=== PATIENT | female | born 1955 ===

== ENCOUNTER 2016-12-20 12:16 | Emergency (ER) | payer SELFPAY ==
[2016-12-20 12:23] VITALS: TEMP 98.1; O2SAT 98
--- NOTE | 2016-12-20 12:52 | ED PDOC ---
HPI: General Adult Time Seen by Provider: 12/20/16 12:34 Chief Complaint (Nursing): Abnormal Labs Chief Complaint (Provider): Low blood pressure History Per: Patient History/Exam Limitations: no limitations Onset/Duration Of Symptoms: Days (today) Additional Complaint(s): Pt. went to the clinic for routine blood work and found to have low bp in the 70s systolic. Also had ekg changes. Pt. has no symptoms. No chest pain, dyspnea, weakness, headaches, neck pain, dizziness, headaches. No cough. No leg pain. Past Medical History Reviewed: Nursing Documentation, Vital Signs Vital Signs: Last Vital Signs Temp 98.1 F 12/20/16 12:19 Pulse 65 12/20/16 12:58 Resp 15 12/20/16 12:58 BP 96/59 L 12/20/16 12:58 Pulse Ox 98 12/20/16 15:21 - Medical History PMH: Diabetes, HTN, Hypothyroidism - Surgical History Surgical History: No Surg Hx - Family History Family History: States: Unknown Family Hx - Social History Current smoker - smoking cessation education provided: No Alcohol: None Drugs: Denies - Home Medications Home Medications: Ambulatory Orders Medication Instructions Recorded Acetaminophen/Oxycodone Hydr 1 tab PO Q6 PRN #18 tab 08/15/14 [Percocet 325 mg-5 mg] - Allergies Allergies/Adverse Reactions: Allergies Allergy/AdvReac Type Severity Reaction Status Date / Time No Known Allergies Allergy Verified 08/08/14 13:27 Review of Systems ROS Statement: Except As Marked, All Systems Reviewed And Found Negative Physical Exam - Reviewed Nursing Documentation Reviewed: Yes Vital Signs Reviewed: Yes - Physical Exam Appears: Positive for: Well, Non-toxic, No Acute Distress Head Exam: Positive for: ATRAUMATIC, NORMAL INSPECTION, NORMOCEPHALIC Skin: Positive for: Normal Color, Warm, DRY Eye Exam: Positive for: EOMI, Normal appearance, PERRL ENT: Positive for: Normal ENT Inspection Neck: Positive for: Normal, Painless ROM Cardiovascular/Chest: Positive for: Regular Rate, Rhythm Respiratory: Positive for: CNT, Normal Breath Sounds Gastrointestinal/Abdominal: Positive for: Normal Exam, Bowel Sounds, Soft Back: Positive for: Normal Inspection. Negative for: L CVA Tenderness, R CVA Tenderness Extremity: Positive for: Normal ROM. Negative for: Tenderness, Pedal Edema Neurologic/Psych: Positive for: Alert, Oriented - Laboratory Results Result Diagrams: 12/20/16 12:56 12/20/16 12:56 Interpretation Of Abn Labs: no acute - ECG ECG: Positive for: Interpreted By Me, Viewed By Me ECG Rhythm: Positive for: Sinus Rhythm, Nonspecific Changes O2 Sat by Pulse Oximetry: 98 Pulse Ox Interpretation: Normal - Radiology X-Ray: Interpreted by Me, Viewed By Me X-Ray Interpretation: No Acute Disease - Progress ED Course And Treament: 1435: Stable. AAOx3. Pain free. EKG changes, similar to old. Spoke with Dr. Kenneth Trevino. Will see pt. in the ED. 1518: Stable. AAOx3. Dr. Kenneth Trevino evaluated and examined pt. Pt. will be dc home. Has had no symptoms in ER. Is not dizzy. BP maintained well in ER. Pt. to fu with clinic in 2-3 days. Pain free. Ambulated with no issues. EKG same as previous. Labs wnl. Wants to go home. Disposition - Clinical Impression Clinical Impression: Hypotension - Patient ED Disposition Is Patient to be Admitted: No Counseled Patient/Family Regarding: Studies Performed, Diagnosis, Need For Followup - Disposition Referrals: [facility] [Outside] - 12/21/16 Disposition: Routine/Home Disposition Time: 15:21 Condition: STABLE Additional Instructions: Return if not better in 3 days. Instructions: Hypotension (ED)
[2016-12-20 12:59] VITALS: BP 96/59; PULSE 65; RESP 15
[2016-12-20] MEDS: Sodium Chloride 0.9% 1,000 ML IV STA (12:59)
[2016-12-20 13:14] LABS: BASO % 0.5 % (0.0-2.0); EOS # 0.1 K/uL (0.0-0.7); EOS % 1.6 % (0.0-4.0); LYMPH # 1.8 K/uL (1.0-4.3); LYMPH % 30.6 % (20.0-40.0); MEAN CORPUSCULAR HEMOGLOBIN 31.3 pg (27.0-31.0); MEAN CORPUSCULAR HGB CONC 34.4 g/dL (33.0-37.0); MEAN PLATELET VOLUME 8.4 fl (7.2-11.7); MONO # 0.6 K/uL (0.0-0.8); MONO % 9.6 % (0.0-10.0); NEUT # 3.3 K/uL (1.8-7.0); NEUT % 57.7 % (50.0-75.0); NRBC % 0.1 % (0.0-0.0); RED CELL DISTRIBUTION WIDTH 13.5 % (11.5-14.5); WHITE BLOOD COUNT 5.8 K/uL (4.8-10.8)
[2016-12-20 13:29] LABS: PARTIAL THROMBOPLASTIN TIME 28.2 SECONDS (23.3-32.5)
[2016-12-20 13:35] LABS: ALB/GLOB RATIO 1.2 (1.0-2.1); ALKALINE PHOSPHATASE 69 U/L (38-126); ALT/SGPT 30 U/L (9-52); AST/SGOT 35 U/L (14-36); BILIRUBIN,TOTAL 0.7 mg/dl (0.2-1.3); BLOOD UREA NITROGEN 17 mg/dl (7-17); CALCIUM 9.3 mg/dL (8.4-10.2); CARBON DIOXIDE 26 mmol/L (22-30); CHLORIDE 102 mmol/L (98-107); GFR AFRICAN-AMERICAN > 60; GLUCOSE,RANDOM 126 mg/dL (65-105); POTASSIUM 4.2 MMOL/L (3.6-5.0); SODIUM 142 mmol/l (132-148); TOTAL PROTEIN 7.5 G/DL (6.3-8.2)
--- NOTE | 2016-12-20 15:28 | CP.PCM.CON ---
History of Present Illness - History of Present Illness History of Present Illness: 61 year old female with PMHx of DM II, hyperlipidemia, hypothyroidism was seen at bedside with attending, Dr. Ferris, regarding hypotension. She was seen today in [facility] by Dr. Hawkins who sent her to the ED for BP in the 70's systolic. She last took her lisinopril yesterday morning, as she did not have another pill for today. She has been tolerating food PO. Denies any headaches, dizziness, chest pain, nausea, vomiting, fever, chills. Orthostatic vitals done: Supine:115/66 HR:65 Sittin/66 HR: 66 Standin/63 HR:70 PMHx:DM II, hypothyroidism, hyperlipidemia Meds:Metformin, glipizide, levothyroxine, simvastatin, aspirin All: NKDA Sugical hx: removal of urethral stones Social: Denies tobacco, drugs, social [employer] #[id number] Past Patient History - Past Social History Alcohol: None Drugs: Denies - CARDIAC Hx Hypertension: Yes - ENDOCRINE/METABOLIC Hx Hypothyroidism: Yes - PSYCHIATRIC Hx Substance Use: No - SURGICAL HISTORY Hx Hysterectomy: Yes - ANESTHESIA Hx Anesthesia: No Meds Allergies/Adverse Reactions: Allergies Allergy/AdvReac Type Severity Reaction Status Date / Time No Known Allergies Allergy Verified 08/08/14 13:27 Physical Exam - Constitutional Appears: Well, Non-toxic, No Acute Distress - Head Exam Head Exam: NORMAL INSPECTION - ENT Exam ENT Exam: Normal Exam - Neck Exam Neck exam: Positive for: Normal Inspection - Respiratory Exam Respiratory Exam: NORMAL BREATHING PATTERN. absent: Rales, Rhonchi, Wheezes - Cardiovascular Exam Cardiovascular Exam: REGULAR RHYTHM, +S1, +S2 - GI/Abdominal Exam GI & Abdominal Exam: Normal Bowel Sounds, Soft. absent: Tenderness - Extremities Exam Extremities exam: Positive for: normal inspection. Negative for: calf tenderness, pedal edema, tenderness - Back Exam Back exam: NORMAL INSPECTION - Neurological Exam Neurological exam: Alert, Oriented x3 - Psychiatric Exam Psychiatric exam: Normal Affect, Normal Mood - Skin Skin Exam: Dry, Normal Color, Warm Results - Vital Signs Recent Vital Signs: Last Vital Signs Temp 98.1 F 12/20/16 12:19 Pulse 65 12/20/16 12:58 Resp 15 12/20/16 12:58 BP 96/59 L 12/20/16 12:58 Pulse Ox 98 12/20/16 15:23 - Labs Result Diagrams: 12/20/16 12:56 12/20/16 12:56 Labs: Laboratory Results - last 24 hr 12/20/16 12:56 WBC 5.8 RBC 4.17 Hgb 13.0 Hct 38.0 MCV 91.0 MCH 31.3 H MCHC 34.4 RDW 13.5 Plt Count 247 MPV 8.4 Neut % (Auto) 57.7 Lymph % (Auto) 30.6 Tripp % (Auto) 9.6 Eos % (Auto) 1.6 Baso % (Auto) 0.5 Neut # 3.3 Lymph # 1.8 Tripp # 0.6 Eos # 0.1 Baso # 0.0 PT 10.1 INR 0.97 APTT 28.2 Sodium 142 Potassium 4.2 Chloride 102 Carbon Dioxide 26 Anion Gap 17 BUN 17 Creatinine 0.6 L Est GFR ( Amer) > 60 Est GFR (Non-Af Amer) > 60 Random Glucose 126 H Calcium 9.3 Total Bilirubin 0.7 AST 35 ALT 30 Alkaline Phosphatase 69 Troponin I < 0.0120 Total Protein 7.5 Albumin 4.0 Globulin 3.5 Albumin/Globulin Ratio 1.2 Assessment & Plan - Assessment and Plan (Free Text) Assessment: 61 year old female with PMHx of DM, HLD, hypothyroidism presented to the ED with hypotension, which has since improved Plan: -Patient examined and evaluated at bedside with attending, Dr. Ferris -Hypotension, improved -EKG- no acute changes -CBC, BPM- labs WNL -Chest xray- no acute disease -Patient to D/C lisinopril -Adherence to medication discussed, patient verbalized understanding -Patient to follow up in [facility] in 2-3 days
--- NOTE | 2016-12-20 16:03 | RAD ---
HISTORY: dyspnea COMPARISON: No prior. FINDINGS: LUNGS: No active pulmonary disease. PLEURA: No significant pleural effusion identified, no pneumothorax apparent. CARDIOVASCULAR: Normal. OSSEOUS STRUCTURES: No significant abnormalities. VISUALIZED UPPER ABDOMEN: Normal. OTHER FINDINGS: None. IMPRESSION: No active disease.
--- NOTE | 2016-12-21 07:10 | CARD ---
APPROVED REPORT EKG Measurement Heart [id number] <Conclusion> Normal sinus rhythm Nonspecific T wave abnormality Abnormal ECG
== END 2016-12-20 15:30 | disposition home or self-care (01) ==
LOC: H.ER 12:16
DX: I95.9 Hypotension, unspecified (principal); E11.9 Type 2 diabetes mellitus without complications; E03.9 Hypothyroidism, unspecified; E78.5 Hyperlipidemia, unspecified; Z79.84 Long term (current) use of oral hypoglycemic drugs; Z79.82 Long term (current) use of aspirin

== ENCOUNTER 2017-01-02 09:17 | Day surgery (SDC) | payer SELFPAY ==
[2017-01-02] MEDS: Lactated Ringer's 500 ML IV ONE (12:00)
[2017-01-02] MEDS ORDERED: Propofol 10 mg/ml Inj (20 ML) ONE (12:30)
[2017-01-02] MEDS ORDERED: Midazolam 2 MG/2 ML VIAL ONE (12:30)
[2017-01-02 13:03] VITALS: PULSE 61; TEMP 97.5; O2SAT 100
[2017-01-02 13:13] VITALS: BP 102/62; RESP 17
== END 2017-01-02 13:26 | disposition home or self-care (01) ==
LOC: H.ENDO 09:17
PROVIDERS: ATTEND Internal Medicine Gastroenterology
DX: Z12.11 Encounter for screening for malignant neoplasm of colon (principal); E11.9 Type 2 diabetes mellitus without complications; E78.5 Hyperlipidemia, unspecified; E03.9 Hypothyroidism, unspecified; K64.8 Other hemorrhoids; K57.30 Diverticulosis of large intestine without perforation or abscess without bleeding

== ENCOUNTER 2018-04-01 10:53 | Emergency (ER) | payer SELFPAY ==
[2018-04-01 10:53] VITALS: BMI 23.4
[2018-04-01 11:03] VITALS: RESP 18
[2018-04-01] MEDS ORDERED: Tdap Vaccine 0.5 ml Vial (10-64 yrs) IM ONE ×2 (12:17→12:51)
--- NOTE | 2018-04-01 14:14 | ED PDOC ---
HPI: Trauma/Fall - HPI Time Seen by Provider: 04/01/18 10:56 Chief Complaint (Nursing): Trauma Chief Complaint (Provider): Fall History Per: Patient History/Exam Limitations: clinical condition Onset/Duration Of Symptoms: Hrs Injury Occurred (Timing): Just Before Arrival Associated Symptoms: denies: Dizziness, Dazed, LOC, Seizure, Memory Impairment Additional History Per: Patient Additional Complaint(s): 63yo female, comes to ER for evaluation after she tripped over a cable on the ground and fell forward, injuring the right side of her face. Patient also reports she injured her right knee. Otherwise, patient denies any loss of consciousness, chest pain, difficulty breathing, neck pain, back pain, abdominal pain, or any other extremity injury. Reports otherwise feeling well prior to fall. Past Medical History Reviewed: Historical Data, Nursing Documentation, Vital Signs Vital Signs: Last Vital Signs Temp 98.4 F 04/01/18 11:02 Pulse 69 04/01/18 11:02 Resp 18 04/01/18 11:02 BP 103/59 L 04/01/18 11:02 Pulse Ox 98 04/01/18 11:02 - Medical History PMH: Diabetes, HTN, Hypercholesterolemia, Hypothyroidism - Surgical History Surgical History: No Surg Hx - Family History Family History: States: No Known Family Hx, Unknown Family Hx - Home Medications Home Medications: Ambulatory Orders Medication Instructions Recorded Gabapentin [Neurontin] 1 tab PO TID 01/02/17 GlipiZIDE [Glucotrol] 1 tab PO DAILY 01/02/17 Levothyroxine [Synthroid] 1 tab PO DAILY 01/02/17 MetFORMIN [glucoPHAGE] 1 tab PO BID 01/02/17 Simvastatin [Simvastatin] 1 tab PO DAILY 01/02/17 - Allergies Allergies/Adverse Reactions: Allergies Allergy/AdvReac Type Severity Reaction Status Date / Time No Known Allergies Allergy Verified 04/01/18 11:13 Review of Systems ROS Statement: Except As Marked, All Systems Reviewed And Found Negative Cardiovascular: Negative for: Chest Pain Respiratory: Negative for: Shortness of Breath Gastrointestinal: Negative for: Nausea, Vomiting, Abdominal Pain Musculoskeletal: Positive for: Other (right knee injury). Negative for: Neck Pain, Shoulder Pain, Arm Pain, Back Pain, Leg Pain Neurological: Positive for: Other (head injury). Negative for: Weakness, Numbness, Headache, Dizziness Physical Exam - Reviewed Nursing Documentation Reviewed: Yes Vital Signs Reviewed: Yes - Physical Exam Comments: GENERAL APPEARANCE: Patient is awake, alert, oriented x 3, in no acute distress. SKIN: Warm, dry; (-) cyanosis. HEAD: (+) abrasions to right forehead EYES: (-) conjunctival pallor, (-) scleral icterus, (-) nystagmus. ENMT: Mucous membranes moist. Nose: (-) tenderness. No oral trauma. Pharynx clear. Airway patent: (-) stridor. Full ROM of mandible without pain. NECK: (-) paracervical tenderness, (-) vertebral tenderness, (-) lymphadenopathy. CHEST AND RESPIRATORY: (-) chest wall tenderness. Lungs: (-) rales, (-) rhonchi , (-) wheezes; breath sounds equal bilaterally. HEART AND CARDIOVASCULAR: (-) irregularity; (-) murmur, (-) gallop. ABDOMEN AND GI: Soft; (-) tenderness. BACK: (-) tenderness. EXTREMITIES: (+) abrasions to right knee, (-) deformity, (-) tenderness, (-) edema, (-) ecchymosis, (-) limitation of motion, (+)distal pulses 2+. NEURO AND PSYCH: GCS=15. Mental status as above. 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 EOMI. (-) facial asymmetry. Tongue and uvula midline. Strength 5/5 in all extremities. No gross sensory deficits. Gait steady. - ECG O2 Sat by Pulse Oximetry: 98 (RA) Pulse Ox Interpretation: Normal Medical Decision Making Medical Decision Making: Impression: Mechanical fall resulting in head and knee injury Plan: -- Tetanus booster -- CT Head CT HEAD: FINDINGS: HEMORRHAGE: No intracranial hemorrhage. BRAIN: Patchy and confluent hypodensities throughout the bilateral cerebral hemispheric white matter are most likely from chronic small vessel ischemic changes. A vague hypodensity in the left frontal lobe (series 4, image 28). VENTRICLES: Unremarkable. No hydrocephalus. CALVARIUM: Unremarkable. PARANASAL SINUSES: Unremarkable as visualized. No significant inflammatory changes. MASTOID AIR CELLS: Unremarkable as visualized. No inflammatory changes. OTHER FINDINGS: None. IMPRESSION: Vague hypodensity in the left frontal lobe (series 4, image 28. While this could represent small vessel vascular disease. Acute infarct cannot be excluded. Correlate clinically for any focal symptomatology. MRI can be obtained if there is suspicion for acute infarct. Patchy and confluent hypodensities throughout the bilateral cerebral hemispheric white matter are most likely from chronic small vessel ischemic changes. Findings were discussed with LUIZA Ward at approximately 2:14 p.m. on 2017. On re-evaluation, patient reports no headache at this time and has no other complaints. On exam, patient remains AAOx3, in no acute distress. Repeat neuro exam shows no focal findings. Diagnostic results d/w the patient in great detail. Advised that she will need to f/u abnormal CT results found today with her pmd without fail. Based on history, exam and diagnostic results, plan will be for outpatient follow up. Patient instructed to follow-up with pmd in 1-2 days without fail. Return to the emergency room at any time for any new or worsening symptoms. Patient states she fully agrees with and understands discharge instructions. States that she agrees with the plan and disposition. Verbalized and repeated discharge instructions and plan. I have given the patient opportunity to ask any additional questions. Scribe Attestation: Documented by Joanna Ceja acting as a scribe for Dorys Ward PA-C. Provider Scribe Attestation: All medical record entries made by the Scribe were at my direction and personally dictated by me. I have reviewed the chart and agree that the record accurately reflects my personal performance of the history, physical exam, medical decision making, and the department course for this patient. I have also personally directed, reviewed, and agree with the discharge instructions and disposition. Disposition - Clinical Impression Clinical Impression: Head injury, Abrasion - Patient ED Disposition Is Patient to be Admitted: No Counseled Patient/Family Regarding: Studies Performed, Diagnosis, Need For Followup - Disposition Disposition: Routine/Home Disposition Time: 14:00 Condition: STABLE Additional Instructions: Thank you for letting us take care of you today. You were treated for head injury, abrasions. The emergency medical care you received today was directed at your acute symptoms. Return to the Emergency Department if your symptoms worsen, do not improve, or if you have any other problems. Please contact your doctor in 2 days for re-evaluation and follow up. Bring any paperwork you were given at discharge with you along with any medications you are taking to your follow up visit. Our treatment cannot replace ongoing medical care by a primary care provider (PCP) outside of the emergency department. Thank you for allowing the [facility] team to be part of your care today. Instructions: Skin Abrasions, Closed Head Injury (DC) Forms: [employer] ([place])
--- NOTE | 2018-04-01 14:16 | CT ---
PROCEDURE: CT HEAD WITHOUT CONTRAST. HISTORY: fall COMPARISON: None available. TECHNIQUE: Axial computed tomography images were obtained through the head/brain without intravenous contrast. Radiation dose: Total exam DLP = 681.73 mGy-cm. This CT exam was performed using one or more of the following dose reduction techniques: Automated exposure control, adjustment of the mA and/or kV according to patient size, and/or use of iterative reconstruction technique. FINDINGS: HEMORRHAGE: No intracranial hemorrhage. BRAIN: Patchy and confluent hypodensities throughout the bilateral cerebral hemispheric white matter are most likely from chronic small vessel ischemic changes. A vague hypodensity in the left frontal lobe (series 4, image 28). VENTRICLES: Unremarkable. No hydrocephalus. CALVARIUM: Unremarkable. PARANASAL SINUSES: Unremarkable as visualized. No significant inflammatory changes. MASTOID AIR CELLS: Unremarkable as visualized. No inflammatory changes. OTHER FINDINGS: None. IMPRESSION: Vague hypodensity in the left frontal lobe (series 4, image 28. While this could represent small vessel vascular disease. Acute infarct cannot be excluded. Correlate clinically for any focal symptomatology. MRI can be obtained if there is suspicion for acute infarct. Patchy and confluent hypodensities throughout the bilateral cerebral hemispheric white matter are most likely from chronic small vessel ischemic changes. Findings were discussed with LUIZA Ward at approximately 2:14 p.m. on 04/01/2018.
[2018-04-01 15:12] VITALS: BP 110/62; PULSE 72; TEMP 98.2
[2018-04-01 19:41] VITALS: O2SAT 98
== END 2018-04-01 14:50 | disposition home or self-care (01) ==
LOC: H.ER 10:53
DX: S09.90XA Unspecified injury of head, initial encounter (principal); S00.91XA Abrasion of unspecified part of head, initial encounter; W01.198A Fall on same level from slipping, tripping and stumbling with subsequent striking against other object, initial encounter; E11.9 Type 2 diabetes mellitus without complications; I10 Essential (primary) hypertension; E03.9 Hypothyroidism, unspecified; E78.00 Pure hypercholesterolemia, unspecified; Z79.84 Long term (current) use of oral hypoglycemic drugs; Z23 Encounter for immunization